=== PATIENT | male | born 1990 | race Caucasian/White ===

== ENCOUNTER 2023-03-21 10:35 | Emergency (ER) | payer SELFPAY ==
[2023-03-21] MEDS ORDERED: Ibuprofen 800 MG TAB ONE (11:32)
== END 2023-03-21 13:09 | disposition home or self-care (01) ==
LOC: MADERS 10:35
DX: S90.32XA Contusion of left foot, initial encounter (principal); W20.8XXA Other cause of strike by thrown, projected or falling object, initial encounter